=== PATIENT | male | born 1985 | race Caucasian/White ===

== ENCOUNTER 2023-12-03 10:28 | Emergency (ER) | payer BC ==
[~2023-12-03] VITALS: Ht 172.7 cm; Wt 96.0 kg
[2023-12-03 10:35] VITALS: O2SAT 98
[2023-12-03 12:07] LABS: TROPONIN I HIGH SENSITIVITY 8 ng/L (3.0-53)
[2023-12-03 13:39] VITALS: BP 149/96; PULSE 88; RESP 19; TEMP 98.2
== END 2023-12-03 14:31 | disposition home or self-care (01) ==
LOC: ER 10:51
DX: R07.89 Other chest pain (principal); F15.10 Other stimulant abuse, uncomplicated
CPT/HCPCS: 36415; 84484; 99283